=== PATIENT | male | born 1975 | race Caucasian/White ===

== ENCOUNTER 2023-06-22 15:46 | Emergency (ER) | payer SELFPAY ==
[~2023-06-22] VITALS: Ht 170.2 cm; Wt 75.0 kg
[~2023-06-22 15:46] MED LIST: AZIT250T PO; NO HOME MEDS
[2023-06-22 15:51] VITALS: BP 168/92; PULSE 80; RESP 18; TEMP 98.5; O2SAT 98
[2023-06-22] MEDS ORDERED: ibuprofen tablet 400 MG TABLET PO ONE (16:10)
== END 2023-06-22 16:40 ==
LOC: ER 15:46
DX: S56.811A Strain of other muscles, fascia and tendons at forearm level, right arm, initial encounter (principal); F10.10 Alcohol abuse, uncomplicated; Z59.00 Homelessness unspecified; Z79.899 Other long term (current) drug therapy; X58.XXXA Exposure to other specified factors, initial encounter; Y93.89 Activity, other specified; Y92.89 Other specified places as the place of occurrence of the external cause; Y99.8 Other external cause status; Y90.9 Presence of alcohol in blood, level not specified
CPT/HCPCS: 73090; 99283